=== PATIENT | female | born 1960 | race Caucasian/White ===

== ENCOUNTER 2017-06-07 10:39 | Inpatient (IN) | payer MEDICAID ==
[~2017-06-07] VITALS: Ht 162.6 cm; Wt 100.5 kg
[~2017-06-07 10:39] MED LIST: DIPH25CA83 PO; LORA10TA7 PO; OLME20TA14 PO; PANT40TA4 PO
[2017-06-07] MEDS ORDERED: clopidogrel 75mg tablet PO ONE (12:15)
[2017-06-07 12:40] LABS: BASOPHILS # (AUTO) 0.1 X10'3 (0-0.2); BASOPHILS % (AUTO) 1.1 % (0-1); EOSINOPHILS # (AUTO) 0.1 X10'3 (0-0.9); EOSINOPHILS % (AUTO) 0.9 % (0-6); HEMATOCRIT 38.3 % (35.0-45.0); HEMOGLOBIN 13.7 g/dl (12.0-16.0); LYMPHOCYTES # (AUTO) 1.1 X10'3 (1.1-4.8); LYMPHOCYTES % (AUTO) 17.3 % (21-51); MEAN CORPUSCULAR HEMOGLOBIN 32.9 PG (27.0-31.0); MEAN CORPUSCULAR HGB CONC 35.8 % (33.0-36.5); MEAN CORPUSCULAR VOLUME 91.8 FL (78-98); MONOCYTES # (AUTO) 0.6 X10'3 (0-0.9); MONOCYTES % (AUTO) 8.8 % (2-12); NEUTROPHILS # (AUTO) 4.5 X10'3 (1.8-7.7); NEUTROPHILS % (AUTO) 71.9 % (42-75); PLATELET COUNT 261 X10'3 (140-440); RED BLOOD COUNT 4.17 X10'6 (4.20-5.60); RED CELL DISTRIBUTION WIDTH 12.7 % (11.5-14.5); WHITE BLOOD COUNT 6.3 X10'3 (4.5-11.0)
[2017-06-07 12:48] LABS: PROTHROMBIN TIME 10.2 SECONDS (9.0-12.0)
[2017-06-07 12:50] LABS: URINE AMPHETAMINE SCREEN NEGATIVE (Neg); URINE BARBITUATE SCREEN NEGATIVE (Neg); URINE BENZODIAZEPINES SCREEN NEGATIVE (Neg); URINE CANNABINOID SCREEN NEGATIVE (Neg); URINE COCAINE SCREEN NEGATIVE (Neg); URINE METHADONE SCREEN NEGATIVE (Neg); URINE OPIATE SCREEN NEGATIVE (Neg); URINE PHENCYCLIDINE SCREEN NEGATIVE (Neg)
[2017-06-07 12:54] LABS: ANION GAP 12 (8-16); BILIRUBIN,TOTAL 0.6 MG/DL (0.1-1.0); BLOOD UREA NITROGEN 5 MG/DL (7-18); BUN/CREATININE RATIO 7.2 (6.6-38.0); CALCIUM 9.4 MG/DL (8.5-10.1); CHLORIDE 95 MMOL/L (99-107); CREATININE 0.69 MG/DL (0.40-0.90); GLUCOSE 116 MG/DL (70-104); SODIUM 131 MMOL/L (135-145); TOTAL CARBON DIOXIDE 23.9 MMOL/L (24-32); TOTAL PROTEIN 8.6 G/DL (6.4-8.2); eGFR 88 ML/MIN
[2017-06-07 12:55] LABS: ALANINE AMINOTRANSFERASE 44 U/L (12-78); ALBUMIN 4.1 G/DL (3.4-5.0); ALBUMIN/GLOBULIN RATIO 0.9 (1.1-1.5); ALKALINE PHOSPHATASE 102 IU/L (46-116); ASPARTATE AMINO TRANSFERASE 42 U/L (10-37)
[2017-06-07 12:57] LABS: CLARITY,URINE CLEAR (Clear); COLOR,URINE STRAW (Yellow); GLUCOSE, URINE NEGATIVE (Neg); KETONES,URINE NEGATIVE (Neg); LEUKOCYTE ESTERASE ,URINE NEGATIVE (Neg); NITRITES, URINE NEGATIVE (Neg); OCCULT BLOOD,URINE NEGATIVE (Neg); PROTEIN,URINE NEGATIVE (Neg); UROBILINOGEN,URINE 0.2 E.U/dL (0.2-1.0)
[2017-06-07 12:58] LABS: UA COLLECTION TYPE URINAL
[2017-06-07] MEDS ORDERED: morphine 4 MG/ML inj SYRINge IV PRN ×2 (15:55)
[2017-06-07] MEDS ORDERED: magnesium 4gm in 100ml NS 100 ML IV PRN (15:55)
[2017-06-07] MEDS ORDERED: ondansetron/PF 4mg/2ml inj IV PRN (15:55)
[2017-06-07] MEDS ORDERED: magnesium Cl slow-release 64mg tablet PO PRN (15:55)
[2017-06-07] MEDS ORDERED: potassium Cl 20 mEq SR tablet PO PRN ×2 (15:55)
[2017-06-07] MEDS ORDERED: magnesium 2GM in 50ml NS 50 ML IV PRN (15:55)
[2017-06-07] MEDS ORDERED: diphenhydrAMINE 50 mg/ml inj IV PRN (15:55)
[2017-06-07] MEDS ORDERED: potassium Cl 40MEQ/NS 500ml 500 ML IV PRN ×2 (15:55)
[2017-06-07] MEDS ORDERED: acetaminophen 325mg tablet PO PRN ×2 (15:55)
[2017-06-07] MEDS ORDERED: magnesium hydroxide 30ml (MOM) UD suspension PO PRN (15:55)
[2017-06-07] MEDS ORDERED: mag hydrox/Alum hydrox/simeth 30ml oral suspension PO PRN (15:55)
[2017-06-07] MEDS: K and/or MAG REPLACEMENT MC SCH (15:55)
[2017-06-07] MEDS: heparin, porcine 5000 units/ml vial SQ SCH ×2 (16:00→23:32)
[2017-06-07 16:38] LABS: CHOL/HDL RATIO 2.9 (0.00-4.99); CHOLESTEROL 262 MG/DL (0-200); HDL CHOLESTEROL 91 MG/DL (35-60); LDL CHOLESTEROL 146 MG/DL (50-100); TRIGLYCERIDES 80 MG/DL (20-135)
[2017-06-07] MEDS ORDERED: haloperidol 5mg tablet PO PRN (16:40)
[2017-06-07] MEDS ORDERED: haloperidol lactate 5mg/ml inj IM PRN (16:40)
[2017-06-07 16:50] VITALS: BP 106/87
[2017-06-07 18:00] VITALS: BP 153/87
[2017-06-07] MEDS: normal saline 1000ml 1,000 ML IV SCH ×2 (18:03→22:09)
[2017-06-07] MEDS: loratadine 10mg tablet PO SCH (18:03)
[2017-06-07] MEDS: atorvastatin 10mg tablet PO SCH (18:04)
[2017-06-07] MEDS: LORazepam 2 mg/ml vial IV PRN (18:07)
[2017-06-07] MEDS ORDERED: temazepam 15mg capsule PO PRN (21:00)
[2017-06-07 22:00] VITALS: BP_SYST 128; BP_SYST 140; BP_SYST 142; BP_DIAS 84; BP_DIAS 88; BP_DIAS 92
[2017-06-07] MEDS: HYDROcodone/acetaminophen 5mg/325mg tablet PO PRN (22:10)
[2017-06-08] VITALS (7 sets, daily range): BP systolic 119–193; BP diastolic 68–106
[2017-06-08] MEDS: HYDROcodone/acetaminophen 5mg/325mg tablet PO PRN ×2 (06:07→12:18)
[2017-06-08 06:29] LABS: BASOPHILS % (AUTO) 0.6 % (0-1); EOSINOPHILS # (AUTO) 0.1 X10'3 (0-0.9); EOSINOPHILS % (AUTO) 3.4 % (0-6); HEMATOCRIT 34.3 % (35.0-45.0); HEMOGLOBIN 12.2 g/dl (12.0-16.0); LYMPHOCYTES # (AUTO) 1.5 X10'3 (1.1-4.8); LYMPHOCYTES % (AUTO) 33.3 % (21-51); MEAN CORPUSCULAR HEMOGLOBIN 33.1 PG (27.0-31.0); MEAN CORPUSCULAR HGB CONC 35.6 % (33.0-36.5); MEAN CORPUSCULAR VOLUME 92.9 FL (78-98); MEAN PLATELET VOLUME 8.3 FL (7.4-10.4); MONOCYTES # (AUTO) 0.6 X10'3 (0-0.9); MONOCYTES % (AUTO) 13.2 % (2-12); NEUTROPHILS # (AUTO) 2.2 X10'3 (1.8-7.7); NEUTROPHILS % (AUTO) 49.5 % (42-75); PLATELET COUNT 231 X10'3 (140-440); RED CELL DISTRIBUTION WIDTH 12.7 % (11.5-14.5); WHITE BLOOD COUNT 4.4 X10'3 (4.5-11.0)
[2017-06-08 06:41] LABS: ANION GAP 11 (8-16); BILIRUBIN,TOTAL 0.7 MG/DL (0.1-1.0); BLOOD UREA NITROGEN 9 MG/DL (7-18); BUN/CREATININE RATIO 11.4 (6.6-38.0); CHLORIDE 95 MMOL/L (99-107); CREATININE 0.79 MG/DL (0.40-0.90); GLUCOSE 114 MG/DL (70-104); MAGNESIUM 1.9 MG/DL (1.5-2.4); PHOSPHORUS 4.7 MG/DL (2.3-4.5); POTASSIUM 3.7 MMOL/L (3.5-5.1); SODIUM 132 MMOL/L (135-145); TOTAL CARBON DIOXIDE 26.2 MMOL/L (24-32); eGFR 75 ML/MIN
[2017-06-08 06:42] LABS: ALANINE AMINOTRANSFERASE 39 U/L (12-78); ALBUMIN 3.4 G/DL (3.4-5.0); ALBUMIN/GLOBULIN RATIO 0.9 (1.1-1.5); ALKALINE PHOSPHATASE 82 IU/L (46-116); ASPARTATE AMINO TRANSFERASE 30 U/L (10-37); CHOL/HDL RATIO 3.1 (0.00-4.99); CHOLESTEROL 228 MG/DL (0-200); HDL CHOLESTEROL 73 MG/DL (35-60); LDL CHOLESTEROL 130 MG/DL (50-100); LIPASE 122 U/L (73-393); TOTAL PROTEIN 7.4 G/DL (6.4-8.2); TRIGLYCERIDES 92 MG/DL (20-135)
[2017-06-08] MEDS: multivitamins, therapeutics tablet PO SCH (07:58)
[2017-06-08] MEDS: folic acid 1mg tablet PO SCH (07:58)
[2017-06-08] MEDS: atorvastatin 10mg tablet PO SCH ×2 (07:58→12:18)
[2017-06-08] MEDS: losartan 50mg tablet PO SCH (07:58)
[2017-06-08] MEDS: loratadine 10mg tablet PO SCH (07:58)
[2017-06-08] MEDS: thiamine 100mg tablet PO SCH (07:59)
[2017-06-08] MEDS: K and/or MAG REPLACEMENT MC SCH (08:00)
[2017-06-08] MEDS: normal saline 1000ml 1,000 ML IV SCH ×2 (08:01→17:51)
[2017-06-08] MEDS: heparin, porcine 5000 units/ml vial SQ SCH ×2 (08:10→16:39)
[2017-06-08] MEDS ORDERED: pneumococcal 23-VAL P-sac vacc 25 mcg/0.5ml vial IMVAC ONE (10:00)
[2017-06-08] MEDS: clopidogrel 75mg tablet PO SCH (12:19)
[2017-06-08] MEDS: LORazepam 2 mg/ml vial IV PRN (13:24)
[2017-06-08] MEDS: HYDROcodone/acetaminophen 10/325mg tab PO PRN (22:56)
[2017-06-09 02:00] VITALS: BP 185/106
[2017-06-09] MEDS: normal saline 1000ml 1,000 ML IV SCH (02:11)
[2017-06-09 05:00] VITALS: BP 137/87
[2017-06-09 06:48] LABS: BASOPHILS % (AUTO) 0.8 % (0-1); EOSINOPHILS # (AUTO) 0.1 X10'3 (0-0.9); EOSINOPHILS % (AUTO) 3.6 % (0-6); HEMOGLOBIN 11.6 g/dl (12.0-16.0); LYMPHOCYTES # (AUTO) 1.3 X10'3 (1.1-4.8); LYMPHOCYTES % (AUTO) 32.7 % (21-51); MEAN CORPUSCULAR HGB CONC 35.3 % (33.0-36.5); MEAN CORPUSCULAR VOLUME 93.4 FL (78-98); MEAN PLATELET VOLUME 8.3 FL (7.4-10.4); MONOCYTES # (AUTO) 0.5 X10'3 (0-0.9); MONOCYTES % (AUTO) 11.6 % (2-12); NEUTROPHILS # (AUTO) 2.1 X10'3 (1.8-7.7); NEUTROPHILS % (AUTO) 51.3 % (42-75); PLATELET COUNT 213 X10'3 (140-440); RED BLOOD COUNT 3.53 X10'6 (4.20-5.60); RED CELL DISTRIBUTION WIDTH 12.5 % (11.5-14.5); WHITE BLOOD COUNT 4.1 X10'3 (4.5-11.0)
[2017-06-09 07:08] LABS: ALANINE AMINOTRANSFERASE 34 U/L (12-78); ALBUMIN 3.3 G/DL (3.4-5.0); ALBUMIN/GLOBULIN RATIO 0.8 (1.1-1.5); ALKALINE PHOSPHATASE 75 IU/L (46-116); ANION GAP 10 (8-16); ASPARTATE AMINO TRANSFERASE 25 U/L (10-37); BILIRUBIN,TOTAL 0.4 MG/DL (0.1-1.0); BLOOD UREA NITROGEN 10 MG/DL (7-18); BUN/CREATININE RATIO 13.9 (6.6-38.0); CALCIUM 8.8 MG/DL (8.5-10.1); CHLORIDE 101 MMOL/L (99-107); CREATININE 0.72 MG/DL (0.40-0.90); GLUCOSE 110 MG/DL (70-104); LIPASE 137 U/L (73-393); MAGNESIUM 1.9 MG/DL (1.5-2.4); PHOSPHORUS 4.2 MG/DL (2.3-4.5); POTASSIUM 4.1 MMOL/L (3.5-5.1); SODIUM 136 MMOL/L (135-145); TOTAL CARBON DIOXIDE 25.1 MMOL/L (24-32); TOTAL PROTEIN 7.2 G/DL (6.4-8.2); eGFR 83 ML/MIN
[2017-06-09] MEDS: K and/or MAG REPLACEMENT MC SCH (08:00)
[2017-06-09] MEDS: losartan 50mg tablet PO SCH (09:24)
[2017-06-09] MEDS: folic acid 1mg tablet PO SCH (09:24)
[2017-06-09] MEDS: loratadine 10mg tablet PO SCH (09:24)
[2017-06-09] MEDS: atorvastatin 10mg tablet PO SCH (09:24)
[2017-06-09] MEDS: thiamine 100mg tablet PO SCH (09:24)
[2017-06-09] MEDS: multivitamins, therapeutics tablet PO SCH (09:25)
[2017-06-09] MEDS: clopidogrel 75mg tablet PO SCH (09:25)
[2017-06-09] MEDS: heparin, porcine 5000 units/ml vial SQ SCH ×4 (09:26→23:08)
[2017-06-09 10:00] VITALS: BP 174/81
[2017-06-09] MEDS ORDERED: amLODIPine 5mg tablet PO ONE (12:25)
[2017-06-09 14:00] VITALS: BP 175/75
[2017-06-09] MEDS: HYDROcodone/acetaminophen 10/325mg tab PO PRN (16:20)
[2017-06-09] MEDS ORDERED: LORazepam 2 mg/ml vial IV PRN (16:40)
[2017-06-09] MEDS ORDERED: LORazepam 1 MG tablet PO PRN (16:40)
[2017-06-09 17:00] VITALS: BP 165/90
[2017-06-09 22:00] VITALS: BP 155/79
[2017-06-10 05:00] VITALS: BP 109/72
[2017-06-10 05:09] LABS: BASOPHILS % (AUTO) 0.7 % (0-1); EOSINOPHILS # (AUTO) 0.2 X10'3 (0-0.9); EOSINOPHILS % (AUTO) 3.4 % (0-6); HEMATOCRIT 35.4 % (35.0-45.0); HEMOGLOBIN 12.4 g/dl (12.0-16.0); LYMPHOCYTES # (AUTO) 1.6 X10'3 (1.1-4.8); LYMPHOCYTES % (AUTO) 33.7 % (21-51); MEAN CORPUSCULAR HEMOGLOBIN 32.7 PG (27.0-31.0); MEAN CORPUSCULAR HGB CONC 34.9 % (33.0-36.5); MEAN CORPUSCULAR VOLUME 93.4 FL (78-98); MEAN PLATELET VOLUME 8.3 FL (7.4-10.4); MONOCYTES # (AUTO) 0.6 X10'3 (0-0.9); MONOCYTES % (AUTO) 12.6 % (2-12); NEUTROPHILS # (AUTO) 2.3 X10'3 (1.8-7.7); NEUTROPHILS % (AUTO) 49.6 % (42-75); PLATELET COUNT 228 X10'3 (140-440); RED BLOOD COUNT 3.78 X10'6 (4.20-5.60); RED CELL DISTRIBUTION WIDTH 12.9 % (11.5-14.5); WHITE BLOOD COUNT 4.7 X10'3 (4.5-11.0)
[2017-06-10 05:49] LABS: ALANINE AMINOTRANSFERASE 37 U/L (12-78); ALBUMIN 3.5 G/DL (3.4-5.0); ALBUMIN/GLOBULIN RATIO 0.8 (1.1-1.5); ALKALINE PHOSPHATASE 76 IU/L (46-116); ANION GAP 12 (8-16); ASPARTATE AMINO TRANSFERASE 30 U/L (10-37); BILIRUBIN,TOTAL 0.5 MG/DL (0.1-1.0); BLOOD UREA NITROGEN 8 MG/DL (7-18); BUN/CREATININE RATIO 11.6 (6.6-38.0); CALCIUM 9.4 MG/DL (8.5-10.1); CHLORIDE 98 MMOL/L (99-107); CREATININE 0.69 MG/DL (0.40-0.90); GLUCOSE 111 MG/DL (70-104); LIPASE 125 U/L (73-393); PHOSPHORUS 4.5 MG/DL (2.3-4.5); POTASSIUM 3.9 MMOL/L (3.5-5.1); SODIUM 135 MMOL/L (135-145); TOTAL CARBON DIOXIDE 24.6 MMOL/L (24-32); TOTAL PROTEIN 7.7 G/DL (6.4-8.2); eGFR 88 ML/MIN
[2017-06-10] MEDS: K and/or MAG REPLACEMENT MC SCH (08:00)
[2017-06-10] MEDS ORDERED: amLODIPine 5mg tablet PO SCH (08:00)
[2017-06-10 08:28] VITALS: BP 118/77
[2017-06-10] MEDS: losartan 50mg tablet PO SCH (08:29)
[2017-06-10] MEDS: clopidogrel 75mg tablet PO SCH (08:29)
[2017-06-10] MEDS: multivitamins, therapeutics tablet PO SCH (08:29)
[2017-06-10] MEDS: thiamine 100mg tablet PO SCH (08:29)
[2017-06-10] MEDS: folic acid 1mg tablet PO SCH (08:29)
[2017-06-10] MEDS: loratadine 10mg tablet PO SCH (08:29)
[2017-06-10] MEDS: atorvastatin 10mg tablet PO SCH (08:29)
[2017-06-10] MEDS: heparin, porcine 5000 units/ml vial SQ SCH (08:30)
[2017-06-10 10:00] VITALS: BP 144/77
[2017-06-10] MEDS ORDERED: AMLO5TAB16 PO (13:46)
[2017-06-10] MEDS ORDERED: CLOP75TA35 PO (13:46)
[2017-06-10] MEDS ORDERED: FOLI1TAB16 PO (13:46)
[2017-06-10] MEDS ORDERED: MULT-1179 PO (13:46)
[2017-06-10] MEDS ORDERED: ATOR10TA PO (13:46)
[2017-06-10] MEDS ORDERED: THI100T PO (13:46)
[2017-06-11] MEDS ORDERED: LORazepam 2 mg/ml vial IV PRN (16:40)
[2017-06-11] MEDS ORDERED: LORazepam 1 MG tablet PO PRN (16:40)
== END 2017-06-10 15:30 | disposition home health service (06) | DRG 45 ==
LOC: ER 10:39 → ED HOLD 15:52 → ORTHO 4S 16:45
PROVIDERS: ADMIT Family Medicine; ATTEND Family Medicine
DX: I63.9 Cerebral infarction, unspecified (principal); E87.1 Hypo-osmolality and hyponatremia; I10 Essential (primary) hypertension; G81.91 Hemiplegia, unspecified affecting right dominant side; I16.1 Hypertensive emergency; F10.10 Alcohol abuse, uncomplicated; F32.9 Major depressive disorder, single episode, unspecified; F41.9 Anxiety disorder, unspecified; E66.9 Obesity, unspecified; G89.29 Other chronic pain; M54.5 Low back pain; K21.9 Gastro-esophageal reflux disease without esophagitis; M48.02 Spinal stenosis, cervical region; Z79.02 Long term (current) use of antithrombotics/antiplatelets; Z79.899 Other long term (current) drug therapy; Z82.49 Family history of ischemic heart disease and other diseases of the circulatory system; Z86.73 Personal history of transient ischemic attack (TIA), and cerebral infarction without residual deficits; Z87.891 Personal history of nicotine dependence; Z91.19 Patient's noncompliance with other medical treatment and regimen; Z56.0 Unemployment, unspecified; Z68.38 Body mass index [BMI] 38.0-38.9, adult
CPT/HCPCS: 36415; 70450; 70544; 70551; 71045; 72141; 80053; 80061; 80305; 81003; 83036; 83690; 83735; 84100; 84443; 84484; 85025; 85610; 87070; 92616; 93005; 93306; 93880; 97110; 97112; 97116; 97162; 97530; J1200; J1644; J2060; J7030